=== PATIENT | female | born 1950 | race Caucasian/White ===

== ENCOUNTER 2023-08-02 08:48 | Emergency (ER) | payer MEDICARE, OTHER, SELFPAY ==
[2023-08-02 08:57] VITALS: BP 134/67; PULSE 71; TEMP 36.4; O2SAT 92; BMI 39.9
--- NOTE | 2023-08-02 09:07 | ECG_ITS ---
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
--- NOTE | 2023-08-02 09:07 | CT_ITS ---
The [address] [address] Patient Name: YASMANY CALHOUN MRN: [id number] date: 1950 Sex: F Assigned Patient Location: ER Current Patient Location: ER Accession/Order Number: [id number] Exam Date: 08/02/2023 09:50 Report Date: 08/02/2023 10:04 At the request of: JOSE GAMBLE Procedure: CT head/brain wo con EXAM: CT head/brain wo con HISTORY: Dizzy, vertigo COMPARISON: None. CT head without contrast CLINICAL: Dizzy, vertigo . TECHNIQUE: Contiguous transaxial images were obtained from skull base to vertex without administration of intravenous contrast. Dose reduction: mA and/or kV are were adjusted by automated exposure control software based upon patients height and weight. FINDINGS: There is no focal scalp soft tissue swelling or acute calvarial fracture. There is hyperostosis frontalis interna, an anatomic normal variant. The visualized globes and orbits are grossly normal. Visualized paranasal sinuses are clear. Bilateral mastoid air cells are clear. The ventricles and sulci are normal and symmetric bilaterally. There is no intraparenchymal hemorrhage, extraaxial fluid collection, mass lesion, or acute large territory ischemia by noncontrast CT. CT/CT head/brain wo con IMPRESSION: 1. No acute intracranial hemorrhage or acute large territory ischemia by noncontrast CT. If the patient has a focal neurologic deficit or there is clinical suspicion for acute cerebrovascular accident, brain MRI would be recommended for further evaluation. Electronically authenticated by: NICOLE FERNANDEZ Date: 08/02/2023 10:04
--- NOTE | 2023-08-02 09:08 | ED.DIZZY1 ---
HPI - Dizziness General Chief Complaint: Dizziness Stated Complaint: DIZZY, VOMITING Time Seen by Provider: 08/02/23 09:03 Source: patient Mode of arrival: ambulance History of Present Illness HPI Narrative: 72-year-old female presents for dizziness. It was of abrupt onset this morning about 6 or 7 AM. She had gotten up to use the bathroom at 4 AM and was fine at that time. It is much worse if she turns her head or gets up and walks. When she lays still it is better. No trauma fever or localized weakness. She is never had vertigo before. Related Data Home Medications ?Medication ?Instructions ?Recorded ?Confirmed albuterol sulfate 90 mcg/actuation 1 puff inhalation DAILY 08/02/23 08/02/23 aerosol inhaler hydrochlorothiazide 25 mg tablet 25 mg PO DAILY 08/02/23 08/02/23 levothyroxine 75 mcg tablet 75 mcg PO DAILY 08/02/23 08/02/23 losartan 100 mg tablet 100 mg PO DAILY 08/02/23 08/02/23 montelukast 10 mg tablet 10 mg PO DAILY 08/02/23 08/02/23 pantoprazole 40 mg tablet,delayed 40 mg PO DAILY 08/02/23 08/02/23 release potassium chloride 10 mEq 10 meq PO DAILY 08/02/23 08/02/23 tablet,extended release(part/cryst) (Joy Moser) Previous Rx's ?Medication ?Instructions ?Recorded meclizine 25 mg tablet 25 mg PO QID PRN dizziness #20 tabs 08/02/23 ondansetron 4 mg disintegrating 4 mg PO Q6H PRN nausea and 08/02/23 tablet vomiting #20 tabs Allergies Allergy/AdvReac Type Severity Reaction Status Date / Time sulfamethoxazole Allergy Intermediate Hives Verified 08/02/23 08:53 [From Bactrim] trimethoprim [From Bactrim] Allergy Intermediate Hives Verified 08/02/23 08:53 Review of Systems ROS Narrative A ten point review of systems is negative except as noted above. Exam Narrative Exam Narrative: Nurses note and vital signs reviewed and patient is not hypoxic. General: The patient appears well and in no apparent distress. Patient is resting comfortably on cart. Skin: Warm, dry, no pallor noted. There is no rash noted. Head: Normocephalic, atraumatic Eye: Normal conjunctiva, no drainage, EOMI. PERRL Ears, Nose, Mouth, and Throat: oral mucosa is moist. Nares patent. Cardiovascular: Regular Rate and Rhythm Respiratory: Patient is in no distress, no accessory muscle use, lungs are clear to auscultation, no wheezing, rales or rhonchi Back: non-tender GI: Soft and nontender Musculoskeletal: The patient has no evidence of calf tenderness, no pitting edema, symmetrical pulses noted bilaterally Neurological: A&O, normal speech Psychiatric: Cooperative Constitutional Vital Signs, click to edit/add: Last Vital Signs Temp 97.6 F 08/02/23 08:57 Pulse 71 08/02/23 08:57 Resp 15 08/02/23 08:57 BP 134/67 08/02/23 08:57 Pulse Ox 92 L 08/02/23 08:57 O2 Del Method Room Air 08/02/23 08:57 Course Vital Signs Vital signs: Vital Signs Temperature 97.6 F 08/02/23 08:57 Pulse Rate 71 08/02/23 08:57 Respiratory Rate 15 08/02/23 08:57 Blood Pressure 134/67 08/02/23 08:57 Pulse Oximetry 92 L 08/02/23 08:57 Oxygen Delivery Method Room Air 08/02/23 08:57 Temperature 97.6 F 08/02/23 08:57 Pulse Rate 71 08/02/23 08:57 Respiratory Rate 15 08/02/23 08:57 Blood Pressure 134/67 08/02/23 08:57 Pulse Oximetry 92 L 08/02/23 08:57 Oxygen Delivery Method Room Air 08/02/23 08:57 MDM - Dizziness MDM Narrative Medical decision making narrative: The patient's workup is negative including CT of the brain. She is feeling better after being given oral Antivert and IV Zofran. She is able to be discharged home. Treatment diagnosis and follow-up were discussed with the patient. Differential Diagnosis Differential diagnosis: Likely benign paroxysmal positional vertigo, orthostatic hypotension and other (Dehydration) Lab Data Attestation: I reviewed the patient's lab results. Labs: Lab Results 08/02/23 Range/Units 09:15 WBC 7.8 (4.0-11.0) 10^3/uL RBC 4.89 (4.20-5.40) 10^6/uL Hgb 14.1 (12.0-16.0) g/dL Hct 43.5 (36.0-48.0) % MCV 89.0 (81.0-99.0) fL MCH 28.8 (26.7-34.0) pg MCHC 32.4 (29.9-35.2) g/dL RDW 14.0 (11.0-15.0) % Plt Count 192 (150-450) 10^3/uL MPV 11.4 (9.5-13.5) fL Neut % (Auto) 69.7 (43.0-75.0) % Lymph % (Auto) 23.0 (20.5-60.0) % Bandera % (Auto) 4.7 (1.7-12.0) % Eos % (Auto) 1.5 (0.9-7.0) % Baso % (Auto) 0.5 (0.2-2.0) % Neut # (Auto) 5.4 (1.4-6.5) 10^3/uL Lymph # (Auto) 1.8 (1.2-3.8) 10^3/uL Bandera # (Auto) 0.4 (0.3-0.8) 10^3/uL Eos # (Auto) 0.1 (0.0-0.7) 10^3/uL Baso # (Auto) 0.0 (0.0-0.1) 10^3/uL Abs Immat Gran (auto) 0.05 H (0.00-0.03) 10^3/uL Imm/Tot Granulo (auto) 0.6 H (0.0-0.5) % Sodium 141 (136-145) mmol/L Potassium 3.5 (3.5-5.1) mmol/L Chloride 103 (98-107) mmol/L Carbon Dioxide 29.4 (21.0-32.0) mmol/L Anion Gap 12.1 BUN 21.0 H (7.0-18.0) mg/dL Creatinine 0.98 (0.55-1.02) mg/dL Est GFR ( Amer) >60 (>=60) Est GFR (Non-Af Amer) 56 L (>=60) BUN/Creatinine Ratio 21.4 Glucose 131 H (74-106) mg/dL Calcium 9.0 (8.5-10.1) mg/dL Imaging Data CT scan - head: Radiologist's impression: ITS Impressions Head CT 08/02/23 09:07 IMPRESSION: 1. No acute intracranial hemorrhage or acute large territory ischemia by noncontrast CT. If the patient has a focal neurologic deficit or there is clinical suspicion for acute cerebrovascular accident, brain MRI would be recommended for further evaluation. Electronically authenticated by: NICOLE FERNANDEZ Date: 08/02/2023 10:04 Discharge Plan Discharge Stand Alone Forms: Portal Instructions Chief Complaint: Dizziness Clinical Impression: Vertigo Patient Disposition: Home, Self-Care Time of Disposition Decision: 10:30 Condition: Good Mode of Transportation: Private Vehicle Prescriptions / Home Meds: New meclizine 25 mg tablet 25 mg PO QID PRN (Reason: dizziness) Qty: 20 0RF ondansetron 4 mg tablet,disintegrating 4 mg PO Q6H PRN (Reason: nausea and vomiting) Qty: 20 0RF No Action albuterol sulfate 90 mcg/actuation HFA aerosol inhaler 1 puff INHALATION DAILY hydrochlorothiazide 25 mg tablet 25 mg PO DAILY levothyroxine 75 mcg tablet 75 mcg PO DAILY losartan 100 mg tablet 100 mg PO DAILY montelukast 10 mg tablet 10 mg PO DAILY pantoprazole 40 mg tablet,delayed release (DR/EC) 40 mg PO DAILY potassium chloride [Klor-Con M10] 10 mEq tablet,ER particles/crystals 10 meq PO DAILY Print Language: Puerto Rican Instructions: Vertigo (ED) Referrals: HEDY CHENG [Primary Care Provider] - 1 week
[2023-08-02] MEDS: MECLIZINE HCL 12.5 MG TABLET 25 MG PO (09:21)
[2023-08-02 09:31] LABS: Basophils Percent Auto 0.5 % (0.2-2.0); Eosinophils Absolute Auto 0.1 10^3/uL (0.0-0.7); Eosinophils Percent Auto 1.5 % (0.9-7.0); Hematocrit 43.5 % (36.0-48.0); Hemoglobin 14.1 g/dL (12.0-16.0); Immature Granulocytes Abs Auto 0.05 10^3/uL (0.00-0.03); Immature Granulocytes Pct Auto 0.6 % (0.0-0.5); Lymphocytes Absolute Auto 1.8 10^3/uL (1.2-3.8); Mean Corpuscular HGB Conc 32.4 g/dL (29.9-35.2); Mean Corpuscular Hemoglobin 28.8 pg (26.7-34.0); Mean Platelet Volume 11.4 fL (9.5-13.5); Monocytes Absolute Auto 0.4 10^3/uL (0.3-0.8); Monocytes Percent Auto 4.7 % (1.7-12.0); Neutrophils Absolute Auto 5.4 10^3/uL (1.4-6.5); Neutrophils Percent Auto 69.7 % (43.0-75.0); Platelet Count 192 10^3/uL (150-450); Red Blood Count 4.89 10^6/uL (4.20-5.40); White Blood Count 7.8 10^3/uL (4.0-11.0)
[2023-08-02 09:45] LABS: Anion Gap 12.1; BUN Creatinine Ratio 21.4; Carbon Dioxide 29.4 mmol/L (21.0-32.0); Chloride 103 mmol/L (98-107); Estimated GFR (African America >60 (>=60); Estimated GFR (Non-African Ame 56 (>=60); Glucose 131 mg/dL (74-106); Potassium 3.5 mmol/L (3.5-5.1); Sodium 141 mmol/L (136-145)
== END 2023-08-02 11:17 | disposition home or self-care (01) ==
PROVIDERS: Emergency Provider Emergency Medicine; PCP Family Medicine
DX: R42 Dizziness and giddiness (principal)
CPT/HCPCS: 36415; 70450; 80048; 85025; 93005; 99285

== ENCOUNTER 2025-02-24 22:12 | Emergency (ER) | payer MEDICARE, SELFPAY ==
--- OUTSIDE RECORDS SUMMARY | 2025-02-17 11:00 | XMS_ITS | Encounter Summary ---
Author Organization [facility] Healthcare Address [address] [place] [address] Care Team Providers Care Binitrotoluene Operator Name Role Phone Moe Momin MD Primary Care Provider [phone] Reason for Referral * Clinic-Administered Medication (Routine) - ClosedSpecialtyDiagnoses / ProceduresReferred By ContactReferred To ContactOrthopaedic Surgery Diagnoses Arthritis of right knee Procedures L Inj/Asp: R knee Gorge Scruggs PA [address] [place] [address] Phone: tel: fax: Referral IDStatusReasonStart DateExpiration DateVisits RequestedVisits [id number] Reason for Visit * ReasonCommentsPain Encounter Details DateTypeDepartmentCare Team (Latest Contact Info)Xpvpkzbjkzk86/10/2025 11:00 AM ESTOffice Visit [facility] [address] [place] [address] Gorge Scruggs PA [address] [place] [address] Right knee pain, unspecified chronicity (Primary Dx); Arthritis of right knee; Acute pain of right knee Social History Tobacco UseTypesPacks/DayYears UsedDateSmoking Tobacco: NeverSmokeless Tobacco: NeverAlcohol UseStandard Drinks/WeekCommentsYes1 (1 standard drink = 0.6 oz pure alcohol)1 glass once a month or every other monthCommentsUnknownSex and Gender InformationValueDate RecordedSex Assigned at BirthNot on fileLegal Sex Vafmim3305/23/2022 7:21 PM EDTGender IdentityNot on fileSexual OrientationNot on filedocumented as of this encounter Progress Notes * AL Boland - 02/17/2025 11:00 AM ESTAssociated Order(s): L Inj/Asp: R knee Post-Procedure Diagnose(s): Arthritis of right knee Images from the original note were not included. Orthopedic Office note: NAME: Sonia Toledo : 1950 EST PT WITH FLARE UP RT KNEE PAIN FOR YRS- SYMPTOMS GRADUALLY INCREASING -S/P CORITSONE INJ 12/11/23- WANTING A REPEAT INJ TODAY XRAY RT KNEE TODAY EPIC 02/17/25 CORTISONE INJ 07/17/23, 12/11/23 PAIN MEDIAL KNEE- DENIES SWELLING- USES ICE- +ADVIL/TYLENOL - DENIES INSTABILITY- SOME STIFFNESS INTHE AM Knee Musculoskeletal Exam Gait Antalgic: right Inspection Leg length disparity: no discrepancy Right Erythema: none Effusion: mild Edema: none Ecchymosis: none Deformity: none Alignment: varus Palpation Right Right knee palpation is unremarkable. Increased warmth: none Masses: none Crepitus: patellofemoral and medial Tenderness: present Medial joint line: moderate Patella: mild Range of Motion Right Right knee range of motion is normal and full. Active extension: 10 Passive extension: 5 Active flexion: 115 Passive flexion: 120 Strength Right Right knee strength is normal. Extension: 5/5. Extension is affected by pain. Flexion: 5/5. Flexion is affected by pain. Instability Right Instability signs: none - stable Anterior drawer: normal Neurovascular Right Right knee neurovascular exam is normal. Pulses - PT: normal Posterior tibial: 2+ Capillary refill: warm and well-perfused Special Signs Right Right knee special signs are normal. Straight leg raise: normal J sign: mild Patellar apprehension: none General Constitutional: appears stated age Labored breathing: no Psychiatric: normal mood and affect Neurological: alert Skin: intact Lymphadenopathy: none Orders Placed This Encounter Procedures L Inj/Asp: R knee This order was created via procedure documentation XR knee 1 or 2 views right Reason for exam:: PAIN L Inj/Asp: R knee on 02/17/2025 11:27 AM Indications: pain Details: 22 G needle, anterolateral approach Medications: 40 mg methylPREDNISolone acetate 40 MG/ML Outcome: tolerated well, no immediate complications E UTILIZING ASEPTIC TECHNIQUE PT GIVEN INJECTION IN RIGHT KNEE, NEUROVASC INTACT S/P INJ, TOLERATEDWELL Procedure, treatment alternatives, risks and benefits explained, specific risks discussed. Consent was given by the patient. Patient was prepped and draped in the usual sterile fashion. Results - Imaging (X-rays of the right knee): - Varus deformity with bone on bone articulation medial joint line ICD-10-CM 1. Right knee pain, unspecified chronicity M25.561 2. Arthritis of right knee M17.11 L Inj/Asp: R knee 3. Acute pain of right knee M25.561 XR knee 1 or 2 views right Assessment & Plan Right knee arthritis X-rays performed today show varus deformity with [id number] articulation at the medial joint line. Her weightbearing x-ray looks stable compared to the one from 11/2024. She notes that her left knee is doing well. With a dose of Motrin and an injection, she is able to continue all her activities of daily living. She declines the thought of knee replacement at this time and prefers to call if symptoms persist or worsen for reevaluation, potential surgical intervention, or repeat injection depending on the duration and extent of symptom relief. Diagnostic plan: X-rays performed today. Treatment plan: Cortisone injection requested in the right knee. Risks and benefits discussed, including potential side effects such as infection, increased pain, and possible allergic reactions. Shehad no further concerns or questions and declined to make a formal follow-up today. Clinical decision making: Risks and benefits discussed, including potential side effects such as infection, increased pain, and possible allergic reactions. Follow-up: She declined to make a formal follow-up today. Questions answered in laymen terms at the bedside. The diagnosis, home exercise plan and any ongoing restrictions/ recommendations reviewed. If unable to be reached in office, I recommend evaluation at nearest Emergency Room if any symptoms worsened or new symptoms develop for requiring urgent evaluation. Visit was preformed using [employer]-mapping pilot speech recognition. documented in this encounter Plan of Treatment Not on file documented as of this encounter Procedures Procedure NamePriorityDate/TimeAssociated DiagnosisCommentsPR ARTHROCENTESIS ASPIR&/INJ MAJOR JT/BURSA W/O GGQuolchf40/10/2025 11:27 AM EST Arthritis of right knee XR KNEE 1-2 VIEWS YIGUPNbebgzj20/10/2025 11:04 AM EST Acute pain of right knee documented in this encounter Results * IN ARTHROCENTESIS ASPIR&/INJ MAJOR JT/BURSA W/O US (02/17/2025 11:27 AM EST) Narrative Gorge Scruggs PA - 02/17/2025 11:27 AM EST AL Boland 02/17/2025 12:00 PM L Inj/Asp: R knee on 02/17/2025 11:27 AM Indications: pain Details: 22 G needle, anterolateral approach Medications: 40 mg methylPREDNISolone acetate 40 MG/ML Outcome: tolerated well, no immediate complications E UTILIZING ASEPTIC TECHNIQUE PT GIVEN INJECTION IN RIGHT KNEE, NEUROVASC INTACT S/P INJ, TOLERATED WELL Procedure, treatment alternatives, risks and benefits explained, specific risks discussed. Consent was given by the patient. Patient was prepped and draped in the usual sterile fashion. Authorizing ProviderResult TypeResult Gloria Scruggs PAIN CLINIC/BEDSIDE ORDERABLESFinal Result * XR knee 1 or 2 views right (02/17/2025 11:04 AM EST)Anatomical Region LateralityModalityLower Extremities, KneeRightRadiographic ImagingSpecimen (Source)Anatomical Location / LateralityCollection Method / VolumeCollection TimeReceived Time Narrative 02/17/2025 11:58 AM EST Imaging Result: AP and Lateral weightbearing right knee: No acute fracture or dislocation Bone on bone articulation medial joint line with subchondral sclerosis and flattening Trace effusion with mild varus alignment Moderate patella femoral degenerative changes Impression: tricompartmental arthritis right knee greatest medial and patellafemoral joint spaces. Authorizing ProviderResult TypeResult StatusGorge Scruggs PAIMG XR PROCEDURES Final Result documented in this encounter Visit Diagnoses Diagnosis Right knee pain, unspecified chronicity- Primary Arthritis of right knee Acute pain of right knee documented in this encounter Administered Medications Medication OrderMAR ActionAction DateDoseRateSite methylPREDNISolone acetate (DEPO-Medrol) injection 40 mg 40 mg, Intra-articular, Once PRN Procedure, Starting on Sat02/17/25 at 1127, For 1 dose Indications:Arthritis of right vsghYbbzd34/10/2025 11:27 AM EST40 mgdocumented in this encounter Care Teams Team MemberRelationshipSpecialtyStart DateEnd Date Moe Momin MD [address] [place] [address] PCP - GeneralFamily Medicine12/02/24documented as of this encounter
--- OUTSIDE RECORDS SUMMARY | 2025-02-17 11:05 | XMS_ITS | Encounter Summary ---
Author Organization [facility] Address [address] [place] [address] Care Team Providers Care Relief Map Modeler Name Role Phone Moe Momin MD Primary Care Provider [phone] Encounter Details DateTypeDepartmentCare Team (Latest Contact Info)Xheuryknwoq67/10/2025 11:05 AM ESTAncillary Procedure [facility] [address] [place] [address] Social History Tobacco UseTypesPacks/DayYears UsedDateSmoking Tobacco: NeverSmokeless Tobacco: NeverAlcohol UseStandard Drinks/WeekCommentsYes1 (1 standard drink = 0.6 oz pure alcohol)1 glass once a month or every other monthCommentsUnknownSex and Gender InformationValueDate RecordedSex Assigned at BirthNot on fileLegal Sex Mqnjow5605/23/2022 7:21 PM EDTGender IdentityNot on fileSexual OrientationNot on filedocumented as of this encounter Plan of Treatment Not on file documented as of this encounter Procedures Procedure NamePriorityDate/TimeAssociated DiagnosisCommentsXR KNEE 1-2 VIEWS AFCFWNsfoifn22/10/2025 11:04 AM EST Acute pain of right knee documented in this encounter Results * XR knee 1 or 2 views [...] and patellafemoral joint spaces. Authorizing ProviderResult TypeResult StatusMatthew Dhruv Scruggs PAIMG XR PROCEDURES Final Result documented in this encounter Visit Diagnoses Not on filedocumented in this encounter Care Teams Team MemberRelationshipSpecialtyStart DateEnd Date Moe Momin MD [address] [place] [address] PCP - GeneralFamily Medicine12/02/24documented as of this encounter
[2025-02-24 22:21] VITALS: BP 140/87; PULSE 93; TEMP 36.6; O2SAT 95; BMI 41.2
--- OUTSIDE RECORDS SUMMARY | 2025-02-24 22:49 | XMS_ITS | Encounter Summary ---
Author Organization [facility] Address [address] [place] [address] Care Team Providers Care Advertising Coordinator Name Role Phone Moe Momin MD Primary Care Provider [phone] Encounter Details DateTypeDepartmentCare Team (Latest Contact Info)Otxnprqinqs05/10/2025Travel Social History Tobacco UseTypesPacks/DayYears UsedDateSmoking Tobacco: NeverSmokeless Tobacco: NeverAlcohol UseStandard Drinks/WeekCommentsYes1 (1 standard drink = 0.6 oz pure alcohol)1 glass once a month or every other monthCommentsUnknownSex and Gender InformationValueDate RecordedSex Assigned at BirthNot on fileLegal Sex Higxho2405/23/2022 7:21 PM EDTGender IdentityNot on fileSexual OrientationNot on filedocumented as of this encounter Plan of Treatment Not on file documented as of this encounter Visit Diagnoses Not on filedocumented in this encounter Care Teams Team MemberRelationshipSpecialtyStart DateEnd Date Moe Momin MD [address] [place] [address] PCP - GeneralFamily Medicine12/02/24documented as of this encounter
--- OUTSIDE RECORDS SUMMARY | 2025-02-24 22:49 | XMS_ITS | Clinical Summary ---
Author Organization [employer] [facility] tem Address [id number] [address] [place] [address] Care Team Providers Care Television And Radio Repairer Name Role Phone Moe Momin MD Primary Care Provider [phone] Allergies Active AllergyReactionsCriticalityNoted DateCommentsAmoxicillin-Pot Clavulanate Hives,GI Welficilyfn27/26/2018Sulfamethoxazole-CpohkxryzpueLevzkLwvxpp25/26/2018 DoxycyclineGI Eowofmuecmz07/04/0671EpcwtrlammtkwxgfUxtcGdg56/20/2024Trimethoprim ApddFtb5409/28/2023 Medications MedicationSigDispense QuantityRefillsLast FilledStart DateEnd DateStatus loratadine (CLARITIN) 10 mg tablet Take 1 tablet (10 mg total) by mouth in the morning.Active TURMERIC ORAL Take by mouth.Active albuterol (PROVENTIL HFA;VENTOLIN HFA) 90 mcg/actuation inhaler Indications:Mild intermittent asthma without complicationInhale 2 puffs every 6 (six) hours as needed for wheezing. 18 g 5Active fluticasone propionate (FLONASE) 50 mcg/actuation nasal spray SPRAY 2 SPRAYS INTO EACH NOSTRIL IN THE MORNING 48 mL 5Active albuterol (PROVENTIL,VENTOLIN) 2.5 mg /3 mL (0.083 %) nebulizer solution Indications:Mild intermittent asthma without complicationInhale 3 mL (2.5 mg total) by nebulization every 6 (six) hours as needed for wheezing. 75 mL 1205Active carbamide peroxide (DEBROX) 6.5 % otic solution Indications:Impacted cerumen of right earAdminister 5 drops into both ears in the morning and 5 drops before bedtime. 15 mL 5Active hydroCHLOROthiazide (HYDRODIURIL) 25 mg tablet TAKE 1 TABLET (25 MG TOTAL) BY MOUTH DAILY. 90 tablet 5Active levothyroxine (SYNTHROID, LEVOTHROID) 75 MCG tablet TAKE 1 TABLET BY MOUTH EVERY DAY IN THE MORNING 90 tablet 5Active meclizine (ANTIVERT) 25 mg tablet Take 1 tablet (25 mg total) by mouth 3 (three) times a day as needed for nausea. 30 tablet 5Active pantoprazole (PROTONIX) 40 mg EC tablet Take 1 tablet (40 mg total) by mouth every morning before breakfast. 90 tablet 5Active fluticasone furoate (ARNUITY ELLIPTA) 200 mcg/actuation blister with device Inhale 1 puff in the morning. 90 each 5Active KLOR-CON M10 10 mEq CR tablet Indications:HypokalemiaTAKE 1 TABLET BY MOUTH IN THE MORNING AND 1 TABLET BEFORE BEDTIME. 180 tablet 5Active montelukast (SINGULAIR) 10 mg tablet TAKE 1 TABLET BY MOUTH EVERY DAY AT NIGHT 90 tablet 5Active losartan (COZAAR) 100 mg tablet TAKE 1 TABLET (100 MG TOTAL) BY MOUTH IN THE MORNING 90 tablet 5Active losartan (COZAAR) 100 mg tablet TAKE 1 TABLET (100 MG TOTAL) BY MOUTH IN THE MORNING 90 tablet 5104/22/2024Discontinued Active Problems ProblemNoted DateDiagnosed DateSevere obesity (BMI 35.0-39.9) with comorbidity 07/18/2021cquired /18/2022Mild intermittent asthma without yigxcppqblwz24/18/2022History of recurrent UTIs11/25/2018 Overview (11/25/2018): 9/17/19: Recurrent cystitis. Unclear if she is getting recurrent bacterial versus nonbacterial cystitis. Her symptoms she was having in September is likely secondary to the prednisone. For now plan to have her obtain urine cultures when symptomatic. I have scheduled her for follow-up in 6 months to review this data and determine next steps Gbetcs7706/20/20174672Vneqsxixetxj86/12/2018GERD (gastroesophageal reflux disease) 06/20/2017 Resolved Problems ProblemNoted DateDiagnosed DateResolved DateBMI 40.0-44.9, adult12/17/2019 06/26/2021evere obesity (BMI 35.0-39.9) with Encounters DateTypeDepartmentCare UsrlQtoezpfxlpl30/12/2025Refill [facility] [address] [place] [address] Moe Momin MD 02/01/2025 8:51 AM EST - 02/01/2025 11:59 PM ESTHospital Encounter [facility] - Mammography[facility]A Imaging [address] [place] [address] Encounter for screening mammogram for malignant neoplasm of breast Discharge Disposition: Home02/01/20253452Abhhzj77/26/2025Refill [facility] [place] [address] Moe Momin MD 01/01/2025Refill [facility] [place] [address] Moe Momin MD Eyekdbllwyk96/22/2025Results Follow-Up [facility] [place] [address] Moe Momin MD CBC auto differential, Comprehensive metabolic panel, Lipid profile, Additional followed-up results: 11:00 AM EDTOffice Visit [facility] [place] [address] Moe Momin MD Encounter for Medicare annual wellness exam (Primary Dx); Encounter for screening mammogram for malignant neoplasm of breast; Primary hypertension; Acquired sesrpjfnzjanea84/21/5073Nozyre50/20/2025Refill [facility] [address] [place] [address] Moe Momin MD from Last 3 Months Immunizations ImmunizationAdministration DatesNext DueCOVID-19, mRNA, LNP-S, PF, 100mcg/0.5mL Dose06/03/2020,05/06/2020ovid-19, Mrna, Lnp-s, Bivalent, Pf, 50mcg/0.5ml or 25mcg/0.25ml01/01/2022Influenza (IM) Preservative Free12/10/2016Influenza High Dose Preservative Free IM12/13/2023,12/23/2018Influenza Vaccine, Quadrivalent, Dxbyleesax95/27/2021,11/19/2019Influenza, High-dose, Ulysamjkibse55/25/2023, 12/10/2021Influenza, Injectable, quadrivalent (PF)11/19/2019,11/04/2018, 12/11/2017Influenza, Trivalent, Pbwhvdfpwm14/10/2020Influenza, Unspecified 12/05/2020neumococcal Conjugate 13-Oxxvau0412/28/2016Pneumococcal Polysaccharide 12/09/2016RSV, bivalent, protein subunit RSVpreF, diluent reconstituted, 0.5 mL, PF02/13/2023Zoster Vaccine Zciaojsjsis87/02/2021,10/20/2020 Family History Medical HistoryRelationNameCommentsHypertensionBrotherJerry HergesheimerHeart diseaseMotherMyrtle HergesheimerHypertensionMotherMyrtle Hergesheimer HypertensionSister 1Deborah HawkHypothyroidismSister 1Deborah HawkLearning disabilitiesSister 1Deborah HawkAsthmaSister 2Kim ProtzmanBreast cancerNeg Hx RelationNameStatusCommentsBrotherJerry HergesheimerFatherDeceasedMotherMyrtle HergesheimerDeceasedSister 1Deborah HawRejiister 2Kim ProtzmanAlive Social History Tobacco UseTypesPacks/DayYears UsedDateSmoking Tobacco: NeverSmokeless Tobacco: Never Tobacco Cessation:Counseling Given: Not Answered Alcohol UseStandard Drinks/WeekCommentsYes0 (1 standard drink = 0.6 oz pure alcohol)very littlePHQ-2AnswerDate RecordedTotal Ophuw343/21/2025AUDIT-CAnswer Date RecordedQ1: How often do you have a drink containing alcohol?Monthly or less12/29/2024Q2: How many drinks containing alcohol do you have on a typical day when you are drinking?1 or Q3: How often do you have six or more drinks on one occasion?Never12/29/2024hildcareAnswerDate RecordedChildcare Deazgol6608/20/2018EmploymentAnswerDate DnozycepQulrjoapriVypiwzb70/12/2019Hunger ScreeningAnswerDate RecordedWithin the past 12 months we worried whether our food would run out before we got money to buy more.Never True12/29/2024Within the past 12 months the food we bought just didn't last and we didn't have money to get more.Never True12/29/2024Purpose - LifeAnswerDate RecordedPurpose and direction in rigfAblvpsx01/27/2021CommentsNoSex and Gender Information ValueDate RecordedSex Assigned at MsiujCluikf91/30/2021 5:49 PM ESTLegal Sex Exekcv1810/14/2014 11:46 AM EDTGender OhxtguyaJfuxlw11/30/2021 5:49 PM ESTSexual OrientationChoose not to qwagzplg71/30/2021 5:49 PM EST Last Filed Vital Signs Vital SignReadingTime TakenCommentsBlood Uchgxlap792/7812/29/2024 11:01 AM EDT Nooym510412/29/2024 11:01 AM ZFJSrgyouaglhd01.1 ??C (98.8 ??F)08/20/2024 12:55 PM EDTRespiratory Gjww8284 11:01 AM EDTOxygen Fskhifgotd91%12/29/2024 11:01 AM EDTInhaled Oxygen Concentration--Eckhxu609.7 kg (222 lb)12/29/2024 11:01 AM BLFOmfkaa858.5 cm (5' 1.61 )12/29/2024 11:01 AM EDTBody Mass Index41.11 12/29/2024 11:01 AM EDT Plan of Treatment DateTypeDepartmentCare Team (Latest Contact Info)Vkoyoibmzwp96/21/2026 10:00 AM EDTOffice Visit [facility] [address] [place] [phone] Moe Momin MD [address] [place] [phone] 12/30/2025 9:30 AM EDTOffice Visit [facility] [address] [place] [phone] Moe Momin MD [address] [place] [address] [phone] Health MaintenanceDue DateLast DoneCommentsDTaP,Tdap and Td Vaccines (1 - Tdap) 1969COVID-19 Vaccine (2024- season), 02/14/2024, 02/01/2023, Additional history existsAdult BMI Follow Up Plan12/29/2025 12/29/2024dult BMI Iusjjvmyz39Depression Diyyknlte90/21/2026 12/29/2024Fall Risk Oyscomsvx13Medicare Annual Wellness Visit , 12/26/2023, 12/24/2022, Additional history existsTobacco Lzcprjqmm65olonoscopy/, 10/28/2023, 11/15/2020, Additional history existsZoster (Shingles) VaccineCompleted 01/10/2021, 1RSV ( or age 60+ yrs)Uwxcdqfcs92/06/2023Influenza QplkmhhJjslnsafj45/28/2025, 12/24/2023, 12/13/2023, Additional history exists Medical Devices Not on file Procedures Procedure NamePriorityDate/TimeAssociated DiagnosisCommentsMAMM SCREENING BILATERAL W RXSZgvwpav17/24/2025 9:07 AM EST Encounter for screening mammogram for malignant neoplasm of breast VLUPtqvnvd40/22/2025 7:59 AM EDT Acquired hypothyroidism LIPID VHSVKFQZoihbwz01/22/2025 7:59 AM EDT Primary hypertension COMPREHENSIVE METABOLIC PWBKJOfakbzm66/22/2025 7:59 AM EDT Primary hypertension CBC WITH AUTO KKXNQRDBOZKPIdrweua41/22/2025 7:59 AM EDT Primary hypertension PROVATION HXYHEHZHECCOhzfifs18/19/2024 7:56 AM EDT from Last 3 Months or Most Recently Relevant to Health Maintenance Results * Mammography screening bilateral with CAD (02/01/2025 9:07 AM EST)Anatomical RegionLateralityModalityBreastBilateralMammographySpecimen (Source)Anatomical Location / LateralityCollection Method / VolumeCollection TimeReceived Time 02/02/2025 12:22 PM EST Narrative 02/02/2025 12:28 PM EST YASMANY Nicole UNIQUE 1950 [id number] EXAM: MAMM SCREENING BILATERAL W CAD, 02/01/2025 8:52 AM CLINICAL INDICATIONS: Screening, Encounter for screening mammogram for malignant neoplasm of breast COMPARISON: Multiple prior mammograms were viewed for comparison dating back to 2019 TECHNIQUE: Bilateral digital tomosynthesis MLO and CC views of the breasts were obtained, with creation of synthetic 2D views. Computer aided detection was utilized. FINDINGS: The breasts are almost entirely fatty. There are no suspicious masses, calcifications, or areas of architectural distortion. IMPRESSION: No mammographic evidence of malignancy. BI-RADS: BI-RADS 1 - Negative RECOMMENDATION: ??Routine screening mammogram in 1 year. RISK ASSESSMENT: TC Lifetime risk: 1.9%. The patient's reported personal and family medical history was used calculate their Tyrer-Cuzick lifetime risk of malignancy. Scores less than 20% are not considered high risk per ACR guidelines and patient should continue with the above recommendation. Finalized by Shlomo Lane DO on 02/02/2025 12:28 PM 1 a MAMM 1 YR [facility] Accredited Performing Facility: [facility] - Mammography/DEXA Imaging [address] [facility] [id number] [address] DO - 02/02/2025 YASMANY Nicole UNIQUE 1950 [id number] EXAM: MAMM SCREENING BILATERAL W CAD, 02/01/2025 8:52 AM CLINICAL INDICATIONS: Screening, Encounter for screening mammogram formalignant neoplasm of breast COMPARISON: Multiple prior mammograms were viewed for comparison datingback to 2019 TECHNIQUE: Bilateral digital tomosynthesis MLO and CC views of the breastswere obtained, with creation of synthetic 2D views. Computer aideddetection was utilized. FINDINGS: The breasts are almost entirely fatty. There are no suspicious masses, calcifications, or areas of architectural distortion. IMPRESSION: No mammographic evidence of malignancy. BI-RADS: BI-RADS 1 - Negative RECOMMENDATION: Routine screening mammogram in 1 year. RISK ASSESSMENT: TC Lifetime risk: 1.9%. The patient's reported personal and family medical history was usedcalculate their Tyrer-Cuzick lifetime risk of malignancy. Scores less than20% are not considered high risk per ACR guidelines and patient shouldcontinue with the above recommendation. Finalized by Shlomo Lane DO on 02/02/2025 12:28 PM 1 a MAMM 1 YR [facility] Accredited Performing Facility: [facility] - Mammography/DEXA Imaging [address] [facility] [place] [address] Authorizing ProviderResult TypeResult StatusMoe Momin MDMEM[facility] MAMMO[facility]APHY ORDERABLESFinal Result * CBC auto differential (12/30/2024 7:59 AM EDT)ComponentValueRef RangeTest MethodAnalysis TimePerformed AtPathologist SignatureWBC8.44 - 11 x10E9/L 12/30/2024 2:16 PM [facility] LABORATORYRBC Count5.083.8 - 5.2 X10E12/L1 2:16 PM [facility] Tghnjpubkn53.711.7 - 15.5 g/dL12/30/2024 2:16 PM [facility] YOWRVJQYTBNhvtskydof16.235 - 47 %12/30/2024 2:16 PM [facility] SCTQZZJMADHOX8570 - 100 fL12/30/2024 2:16 PM [facility] OIGYWXPTDFXRA86.027 - 34 pg12/30/2024 2:16 PM [facility] WTLNCGIWFRULGC03.332 - 36 g/dL12/30/2024 2:16 PM [facility] IILDZCIXTPIEY45.811.5 - 15 %12/30/2024 2:16 PM [facility] LABORATORYPlatelet Ucppu004024 - 450 X10E9/L1 2:16 PM [facility] LABORATORYMPV9.97 - 12 fL12/30/2024 2:16 PM [facility]OR[facility]ORYNeutrophils %61.9%12/30/2024 2:16 PM [facility]OR[facility]ORYLymphocytes %28.1%12/30/2024 2:16 PM [facility]ORYMonocytes %6.5%12/30/2024 2:16 PM [facility]ORYEosinophils %2.7%12/30/2024 2:16 PM [facility]OR[facility]ORYBasophils %0.8%12/30/2024 2:16 PM [facility] LABORATORYNeutrophils Absolute (A)5.21.5 - 6.6 10*3/uL 12/30/2024 2:16 PM [facility] LABORATORYLymphocytes Absolute 2.31.0 - 3.5 10*3/uL12/30/2024 2:16 PM [facility] Monocytes Absolute0.50.0 - 0.9 10*3/uL12/30/2024 2:16 PM [facility]ORYEosinophils Absolute0.20.0 - 0.4 10*3/uL12/30/2024 2:16 PM [facility] LABORATORYBasophils Absolute0.10.0 - 0.2 10*3/uL 12/30/2024 2:16 PM [facility] LABORATORYDifferential Type AUTOMATED ZZFYIYNJVGVA41/22/2025 2:16 PM [facility] LABORATORYSpecimen (Source)Anatomical Location / LateralityCollection Method / VolumeCollection TimeReceived TimeBloodVenous blood / UnknownVenipuncture / Bkevvkc6612/30/2024 7:59 AM EDT1 7:59 AM EDT Narrative Authorizing ProviderResult TypeResult Nicolasa HONG BLOOD ORDERABLESFinal ResultPerforming OrganizationAddressCity/State/ZIP CodePhone Number [facility] [address] [place] [address], * TSH (12/30/2024 7:59 AM EDT)ComponentValueRef RangeTest MethodAnalysis Time Performed AtPathologist SignatureTSH4.210.49 - 4.67 uIU/mL12/30/2024 2:28 PM [facility] LABORATORYSpecimen (Source)Anatomical Location / LateralityCollection Method / VolumeCollection TimeReceived TimeBloodVenous blood / UnknownVenipuncture / Icbnjgs9112/30/2024 7:59 AM EDT1 7:59 AM EDT Narrative Authorizing ProviderResult TypeResult Nicolasa HONG BLOOD ORDERABLESFinal ResultPerforming OrganizationAddressCity/State/ZIP CodePhone Number [facility] [address] [place] [address], * Lipid profile (12/30/2024 7:59 AM EDT)ComponentValueRef RangeTest Method Analysis TimePerformed AtPathologist NuqfzmkedTSKLMTDZUEK634238 - 200 mg/dL 12/30/2024 2:20 PM [facility] KVTTELUNJXGMNSLASMBMHU2161 - 150 mg/dL12/30/2024 2:20 PM [facility] LABORATORYHDL XKRDUECIUNM75>39 mg/dL12/30/2024 2:20 PM [facility]ORATORYComment: HDL <40 mg/dL - High Risk HDL > or = 40mg/dL- Desirable HDL >60 mg/dL - Negative Risk LDL (CALC)103<130 mg/dL12/30/2024 2:20 PM [facility] Comment: LDL <100 mg/dL - Desirable LDL >160 mg/dL - High Risk CHOLESTEROL:HDL3.11.0 - 5. 2:20 PM [facility] LABORATORYVERY LOW LRBYFLAPRKY966 - 30 mg/dL12/30/2024 2:20 PM [facility] LABORATORYSpecimen (Source)Anatomical Location / Laterality Collection Method / VolumeCollection TimeReceived TimeBloodVenous blood / UnknownVenipuncture / Fqdnsfp8312/30/2024 7:59 AM EDT1 7:59 AM EDT Narrative Authorizing ProviderResult TypeResult StatusMoe HONG BLOOD ORDERABLESFinal ResultPerforming OrganizationAddressCity/State/ZIP CodePhone Number [facility] [address] [place] [address], * (ABNORMAL) Comprehensive metabolic panel (12/30/2024 7:59 AM EDT)Component ValueRef RangeTest MethodAnalysis TimePerformed AtPathologist SignatureSODIUM 945297 - 146 mmol/L1 2:20 PM [facility] POTASSIUM3.4(L)3.5 - 5.0 mmol/L1 2:20 PM [facility] JXFUGLZFDPGOLOGUZN49169 - 109 mmol/L1 2:20 PM [facility] LABORATORYCARBON FIZIAIH4343 - 32 mmol/L1 2:20 PM [facility] LABORATORYANION GAP95 - 15 mmol/L1 2:20 PM EDT [facility] LABORATORYBLOOD UREA PONTIDRH006 - 27 mg/dL12/30/2024 2:20 PM [facility] LABORATORYCREATININE1.06(H)0.40 - 1.00 mg/dL12/30/2024 2:20 PM [facility] LABORATORYComment:METHOD TRACEABLE TO IDFL DZORGJRTZBVCVNA779(H)65 - 99 mg/dL12/30/2024 2:20 PM T [facility] LABORATORYCALCIUM9.08.5 - 10.5 mg/dL12/30/2024 2:20 PM [facility] LABOR[facility]ORYTOTAL PROTEIN6.96.0 - 8.0 g/dL 12/30/2024 2:20 PM [facility] LABORATORYALBUMIN3.93.2 - 5.3 g/dL12/30/2024 2:20 PM [facility] LABORATORYALKALINE OLHZYBXGGBV1126 - 130 U/L1 2:20 PM [facility] MFBGARZMPMBMK90<=41 U/L1 2:20 PM [facility] KONBYMEDPCEWP17<=31 U/L1 2:20 PM [facility] LABORATORYBILIRUBIN,TOTAL0.70.3 - 1.2 mg/dL12/30/2024 2:20 PM [facility] LABOR[facility]ORYEGFR Non-Race Egadrioai24(L)>=60 ml/min/1.73sq.m 12/30/2024 2:20 PM [facility] LABORATORYComment: Reported eGFR is based on the CKD-EPI 2020 equation that does not use a race coefficient. Specimen (Source)Anatomical Location / LateralityCollection Method / Volume Collection TimeReceived TimeBloodVenous blood / UnknownVenipuncture / Unknown 12/30/2024 7:59 AM EDT1 7:59 AM EDT Narrative Authorizing ProviderResult TypeResult StatusMoe HONG BLOOD ORDERABLESFinal ResultPerforming OrganizationAddressCity/State/ZIP CodePhone Number [facility] [address] [place] [address], * Colonoscopy Report (10/28/2023 7:56 AM EDT)Specimen (Source)Anatomical Location / LateralityCollection Method / VolumeCollection TimeReceived Time Narrative SYSTEMGENERATED, DOCUMENTATION - 10/28/2023 7:56 AM EDT This order has been auto-finalized for image and report archival in PACs. *For full report details, please reach out to your physician. ??This image is visible to you in MyChart.* Authorizing ProviderResult TypeResult StatusMichael E Grillis DOIMG OR IMG ORDERABLESFinal Result from Last 3 Months or Most Recently Relevant to Health Maintenance Insurance Care Teams Team MemberRelationshipSpecialtyStart DateEnd Date Moe Momin MD [address] [place] [address] PCP - GeneralInternal Medicine06/16/24
--- OUTSIDE RECORDS SUMMARY | 2025-02-24 22:49 | XMS_ITS | Encounter Summary ---
Author Organization [facility] Address [address] [facility] [place] [address] Care Team Providers Care Resistor Inspector Name Role Phone Moe Momin MD Primary Care Provider [phone] Encounter Details DateTypeDepartmentCare Team (Latest Contact Info)Ypahofjamiv74/10/2025amboo flowsheet [facility] Orth[facility] [address] [place] [address] Gorge Scruggs PA [address] [place] [address] Social History Tobacco UseTypesPacks/DayYears UsedDateSmoking Tobacco: NeverSmokeless Tobacco: NeverAlcohol UseStandard Drinks/WeekCommentsYes1 (1 standard drink = 0.6 oz pure alcohol)1 glass once a month or every other monthCommentsUnknownSex and Gender InformationValueDate RecordedSex Assigned at BirthNot on fileLegal Sex Zbjqqk0905/23/2022 7:21 PM EDTGender IdentityNot on fileSexual OrientationNot on filedocumented as of this encounter Plan of Treatment Not on file documented as of this encounter Visit Diagnoses Not on filedocumented in this encounter Care Teams Team MemberRelationshipSpecialtyStart DateEnd Date Moe Momin MD [address] [place] [address] PCP - GeneralFamily Medicine12/02/24documented as of this encounter
--- OUTSIDE RECORDS SUMMARY | 2025-02-24 22:49 | XMS_ITS | Encounter Summary ---
Author Organization [employer] Address [id number] [address] [place] [address] Care Team Providers Care File Drawer Finisher Name Role Phone Moe Momin MD Primary Care Provider [phone] Reason for Visit * ReasonCommentsMed Refill Encounter Details DateTypeDepartmentCare Team (Latest Contact Info)Oacpoebpkkt55/12/2025Refill [facility] [address] [place] [phone] Moe Momin MD [address] [place], [place] [phone] Social History Tobacco UseTypesPacks/DayYears UsedDateSmoking Tobacco: NeverSmokeless Tobacco: NeverAlcohol UseStandard Drinks/WeekCommentsYes0 (1 standard drink = 0.6 oz pure alcohol)very littlePHQ-2AnswerDate RecordedTotal Vbneo071/21/2025AUDIT-CAnswer Date RecordedQ1: How often do you have a drink containing alcohol?Monthly or less12/29/2024Q2: How many drinks containing alcohol do you have on a typical day when you are drinking?1 or Q3: How often do you have six or more drinks on one occasion?Never12/29/2024hildcareAnswerDate RecordedChildcare Nvkmozm7708/20/2018EmploymentAnswerDate VfjeejroInqnhepjuoZyiklde50/12/2019Hunger ScreeningAnswerDate RecordedWithin the past 12 months we worried whether our food would run out before we got money to buy more.Never True12/29/2024Within the past 12 months the food we bought just didn't last and we didn't have money to get more.Never True12/29/2024Purpose - LifeAnswerDate RecordedPurpose and direction in etcjQmjaokp77/27/2021CommentsNoSex and Gender Information ValueDate RecordedSex Assigned at XsatuUkinfw46/30/2021 5:49 PM ESTLegal Sex Gkgpsm2210/14/2014 11:46 AM EDTGender UwtmqjapRhgcdd87/30/2021 5:49 PM ESTSexual OrientationChoose not to sztolmac54/30/2021 5:49 PM ESTdocumented as of this encounter Plan of Treatment DateTypeDepartmentCare Team (Latest Contact Info)Fayywpcngfz80/21/2026 10:00 AM EDTOffice Visit [facility] [address] [place] [phone] Moe Momin MD [address] [place] [address] 12/30/2025 9:30 AM EDTOffice Visit [facility] [address] [place] [phone] Moe Momin MD [address] [place] [address] [phone] documented as of this encounter Visit Diagnoses Not on filedocumented in this encounter Additional Health Concerns AssessmentNoted TimePHQ-9 Depression Total Score: 10:00 AM EDTA Body Mass Index follow-up plan has been documented for the bnfytbx9312/29/2024 11:24 AM EDTdocumented as of this encounter Care Teams Team MemberRelationshipSpecialtyStart DateEnd Date Moe Momin MD [address] [place] [phone] PCP - GeneralInternal Medicine06/16/24documented as of this encounter
--- OUTSIDE RECORDS SUMMARY | 2025-02-24 22:49 | XMS_ITS | Clinical Summary ---
Author Organization [facility] Healthcare Address [address] [place] [address] Care Team Providers Care Information Technology Advisor Name Role Phone Moe Momin MD Primary Care Provider Allergies Active AllergyReactionsCriticalityNoted DateCommentsAmoxicillin-Pot Clavulanate 05/06/2017DoxycyclineGI vsbyflwtvbq03/04/2024Sulfamethoxazole-TrimethoprimRash, AosaxtuWwt99/26/2018 Medications MedicationSigDispense QuantityRefillsLast FilledStart DateEnd DateStatus albuterol HFA 90 mcg/act inhaler Inhale 2 puffs every 6 (six) hours if needed for wheezingActive budesonide (Pulmicort Flexhaler) 180 MCG/ACT inhaler 1 puff 1 (one) time each day at the same timeActive cefdinir (Omnicef) 300 MG capsule TAKE 1 CAPSULE (300 MG TOTAL) BY MOUTH IN THE MORNING AND BEFORE BEDTIME FOR 10 DAYS01/03/2023ctive ciprofloxacin (Cipro) 500 MG tablet Take 500 mg by mouth every 12 (twelve) hours12/07/2022ctive doxycycline (Vibramycin) 100 MG capsule TAKE 1 CAPSULE (100 MG TOTAL) BY MOUTH IN THE MORNING AND BEFORE BEDTIME FOR 10 DAYS01/21/2023ctive fluticasone (Flonase) 50 MCG/ACT nasal spray Active Arnuity Ellipta 200 MCG/ACT inhaler Inhale 1 puff in the morning.12/24/2022ctive famotidine (Pepcid AC) 10 MG tablet every 12 (twelve) hoursActive fluticasone (Flonase) 50 MCG/ACT nasal spray Administer 2 sprays into affected nostril(s) in the morning.04/22/2023ctive fluticasone (Flovent HFA) 44 MCG/ACT inhaler every 12 (twelve) hoursActive hydroCHLOROthiazide (HYDRODiuril) 25 MG tablet Take 25 mg by mouth in the morning.06/27/2023ctive montelukast (Singulair) 10 MG tablet Take 10 mg by mouth at rgwlsyo4612/24/2022ctive pantoprazole (ProtoNix) 40 MG EC tablet Take 1 tablet by mouth in the morning.01/28/2023ctive potassium chloride CR (Klor-Con M10) 10 MEQ ER tablet Take 10 mEq by mouth in the morning.03/22/2023ctive phenazopyridine (Pyridium) 200 MG tablet TAKE 1 TABLET BY MOUTH THREE TIMES A DAY AFTER MEALS FOR 2 DAYS12/07/2022ctive losartan (Cozaar) 100 MG tablet Take 100 mg by mouth in the morning.06/27/2023ctive loratadine (Claritin) 10 MG tablet Take 10 mg by mouth in the morning.Active levothyroxine (Synthroid, Levoxyl) 75 MCG tablet Take 1 tablet by mouth in the morning.03/14/2023ctive Turmeric (QC TUMERIC COMPLEX PO) Take by mouthActive ondansetron ODT (Zofran-ODT) 4 MG disintegrating tablet TAKE 1 TABLET BY MOUTH EVERY 6 HOURS NEEDED FOR NAUSEA AND MUABMRHP16/24/2024 Active meclizine (Antivert) 25 MG tablet Take 25 mg by mouth as needed in the morning and 25 mg as needed at noon and 25 mg as needed in theevening.08/02/2023ctiveHospital, Clinic, or Other Facility Administered MedicationOrdered DoseRouteFrequencyStart DateEnd DateStatus methylPREDNISolone acetate (DEPO-Medrol) injection 40 mg Indications:Arthritis of right knee40 mgIXOnce PRN Yvcvjyowa39 Ended Active Problems No known active problems Encounters DateTypeDepartmentCare KyrsCcovpemdpdi85/10/2025 11:05 AM ESTAncillary Procedure [facility] [place] [address] 02/17/2025 11:00 AM ESTOffice Visit [facility] [address] [place] [phone] Gorge Scruggs PA Right knee pain, unspecified chronicity (Primary Dx); Arthritis of right knee; Acute pain of right knee02/17/2025amb flowsheet [facility] [place] [address] [place] [phone] Gorge Scruggs PA 02/17/20258056Xhyodh11/30/2025 10:10 AM EDTAncillary Procedure [address] [place] [address] 12/08/2024 10:00 AM EDTOffice Visit [facility] [place] [address] [place] [address] Gorge Scruggs PA Acute pain of left knee (Primary Dx); Arthritis of left knee12/08/2024[facility] flowsheet [facility] [address] [place] [phone] Gorge Scruggs PA 12/08/2024Travelfrom Last 3 Months Family History RelationNameStatusCommentsFatherDeceasedMotherDeceased Social History Tobacco UseTypesPacks/DayYears UsedDateSmoking Tobacco: NeverSmokeless Tobacco: Never Tobacco Cessation:Counseling Given: Not Answered Alcohol UseStandard Drinks/WeekCommentsYes1 (1 standard drink = 0.6 oz pure alcohol)1 glass once a month or every other monthCommentsUnknownSex and Gender InformationValueDate RecordedSex Assigned at BirthNot on fileLegal Sex Tyqbdq4605/23/2022 7:21 PM EDTGender IdentityNot on fileSexual OrientationNot on file Last Filed Vital Signs Vital SignReadingTime TakenCommentsBlood Pressure--Pulse--Temperature-- Respiratory Rate--Oxygen Saturation--Inhaled Oxygen Concentration--Sqrcfi60.9 kg (218 lb)08/21/2021 12:00 PM PCRYkjgxc210.5 cm (5' 2 )08/21/2021 12:00 PM EDTBody Mass Index39.8706/ 12:00 PM EDT Plan of Treatment Health MaintenanceDue DateLast DoneCommentsCT Camlecrjdzif33/05/1951FIT-DNA 1950FIT1950FOBT1950 9443Dnlsmmmemubyq59/05/1951OVID-19 Vaccine ( season), 02/01/2023, 01/01/2022, Additional history vnugrnZqevfkrpk45, 01/20/2024, 01/17/2023, Additional history cbpyvzCdvfqgswebv79, 10/28/2023, 11/15/2020olorectal Cancer Ompfdqkjw92/19/2034neumococcal Vaccine: 65+ KpedpUojawjjgv53/20/2017, 12/09/2016Influenza ZqoppaxIqdrjmckq16/28/2025, 12/24/2023, 12/13/2023, Additional history exists Procedures Procedure NamePriorityDate/TimeAssociated DiagnosisCommentsPR ARTHROCENTESIS ASPIR&/INJ MAJOR JT/BURSA W/O AQEliiehr42/10/2025 11:27 AM EST Arthritis of right knee XR KNEE 1-2 VIEWS IIXWVXtlkpvp28/10/2025 11:04 AM EST Acute pain of right knee CA ARTHROCENTESIS ASPIR&/INJ MAJOR JT/BURSA W/O WIZeyahzl19/30/2025 10:32 AM EDT Arthritis of left knee XR KNEE 1-2 VIEWS PMMUPynwpjv88/30/2025 10:09 AM EDT Acute pain of left knee from Last 3 Months Results * CA ARTHROCENTESIS ASPIR&/INJ MAJOR JT/BURSA W/O US (02/17/2025 [...] the usual sterile fashion. Authorizing ProviderResult TypeResult StatusGorge Scruggs PAIN CLINIC/BEDSIDE ORDERABLESFinal Result * XR [...] and patellafemoral joint spaces. Authorizing ProviderResult TypeResult Gloria Scruggs PAIMG XR PROCEDURES Final Result * CA ARTHROCENTESIS ASPIR&/INJ MAJOR JT/BURSA W/O US (12/08/2024 10:32 AM EDT) Gorge Adams PA - 12/08/2024 10:32 AM EDT AL Boland 12/08/2024 10:36 AM L Inj/Asp: L knee on 12/08/2024 10:32 AM Indications: pain Details: 22 G needle, anterolateral approach Medications: 40 mg methylPREDNISolone acetate 40 MG/ML Outcome: tolerated well, no immediate complications UTILIZING ASEPTIC TECHNIQUE PT GIVEN INJECTION IN LEFT KNEE, NEUROVASC INTACT S/P INJ, TOLERATED WELL Procedure, treatment alternatives, risks and benefits explained, specific risks discussed. Consent was given by the patient. Authorizing ProviderResbatool BeaverResult Gloria Scruggs PAIN CLINIC/BEDSIDE ORDERABLESFinal Result * XR knee 1 or 2 views left (12/08/2024 10:09 AM EDT)Anatomical RegionLaterality ModalityLower Extremities, KneeLeftRadiographic ImagingSpecimen (Source) Anatomical Location / LateralityCollection Method / VolumeCollection Time Received Time Narrative 12/08/2024 10:34 AM EDT Imaging Result: AP and lateral left knee: No acute fracture or dislocation Narrowing medial and lateral joint line with subchondral sclerosis and slight subchondral cystic changes predominant to lateral weight bearing surface with flattening. 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
--- NOTE | 2025-02-24 23:18 | ED.WOUNDLAC1 ---
HPI - Wound/Laceration General Chief Complaint: Wound/Laceration Stated Complaint: Cut on R leg Time Seen by Provider: 02/24/25 22:25 Source: patient Mode of arrival: Wheelchair History of Present Illness HPI narrative: This 74-year-old female presents for evaluation of a laceration to her right lower leg. The patient states she was in her garage and her boot got caught and she fell forward onto a cement stair. She then noticed blood on her pants and pulled her pant leg up revealing an approximately 7 cm horizontal laceration to her mid to distal lower leg. She does not know the date of her last tetanus shot. She is not on blood thinners. No additional injuries or complaints. Related Data Home Medications ?Medication ?Instructions ?Recorded ?Confirmed albuterol sulfate 90 mcg/actuation 1 puff inhalation DAILY 08/02/23 08/02/23 aerosol inhaler hydrochlorothiazide 25 mg tablet 25 mg PO DAILY 08/02/23 08/02/23 levothyroxine 75 mcg tablet 75 mcg PO DAILY 08/02/23 08/02/23 losartan 100 mg tablet 100 mg PO DAILY 08/02/23 08/02/23 montelukast 10 mg tablet 10 mg PO DAILY 08/02/23 08/02/23 pantoprazole 40 mg tablet,delayed 40 mg PO DAILY 08/02/23 08/02/23 release potassium chloride 10 mEq 10 meq PO DAILY 08/02/23 08/02/23 tablet,extended release(part/cryst) (Klтатьяна-Con M) Previous Rx's ?Medication ?Instructions ?Recorded meclizine 25 mg tablet 25 mg PO QID PRN dizziness #20 tabs 08/02/23 ondansetron 4 mg disintegrating 4 mg PO Q6H PRN nausea and 08/02/23 tablet vomiting #20 tabs Allergies Allergy/AdvReac Type Severity Reaction Status Date / Time sulfamethoxazole (From Allergy Intermediate Hives Verified 08/02/23 08:53 Bactrim) trimethoprim (From Bactrim) Allergy Intermediate Hives Verified 08/02/23 08:53 Review of Systems ROS Status of ROS 10 or more systems reviewed and unremarkable except as noted in history and below PFSH PFSH Social History Little interest or pleasure in doing things: not at all Feeling down, depressed, or hopeless: not at all Exam Narrative Exam Narrative: Vital signs and Nursing Notes reviewed: Patient is afebrile, pulse is elevated 93, blood pressure is elevated 140/87, she is not hypoxic with pulse ox of 95% on room air General: Awake, alert, oriented, no acute distress, lying comfortably on the stretcher HEENT: Normocephalic atraumatic, mucous membranes are moist and pink, eyes are clear, normal conjunctiva, vision is grossly intact Chest: Lungs are clear to auscultation with good air entry, there is no wheezing rhonchi or rales appreciated no accessory muscle use, patient is speaking in complete sentences-no chest wall tenderness to palpation CVS: Regular rate and rhythm S1-S2, no murmurs rubs or gallops, pulses are brisk and equal bilaterally Extremities: Moving all extremities, approximately 7 cm horizontal laceration to the right lower leg, anterior tibial area. Mild active bleeding. Minimal tissue damage noted Skin: Normal in appearance without rash,pallor, petechiae or purpura-with the exception of a laceration to the right lower leg as described above Neuro: No focal deficits Constitutional Vital Signs, click to edit/add: Last Vital Signs Temp 98 F 02/24/25 22:21 Pulse 93 H 02/24/25 22:21 Resp 20 02/24/25 22:21 BP 140/87 02/24/25 22:21 Pulse Ox 95 02/24/25 22:21 O2 Del Method Room Air 02/24/25 22:21 Course Vital Signs Vital signs: Vital Signs Temperature 98 F 02/24/25 22:21 Pulse Rate 93 H 02/24/25 22:21 Respiratory Rate 20 02/24/25 22:21 Blood Pressure 140/87 02/24/25 22:21 Pulse Oximetry 95 02/24/25 22:21 Oxygen Delivery Method Room Air 02/24/25 22:21 Temperature 98 F 02/24/25 22:21 Pulse Rate 93 H 02/24/25 22:21 Respiratory Rate 20 02/24/25 22:21 Blood Pressure 140/87 02/24/25 22:21 Pulse Oximetry 95 02/24/25 22:21 Oxygen Delivery Method Room Air 02/24/25 22:21 MDM - Wound/Laceration MDM Narrative Medical decision making narrative: 74-year-old female presents for evaluation of an approximately 7 cm horizontal laceration to her right lower leg that occurred when she fell and struck it on a concrete stair. Her tetanus was updated. The wound was closed with 12 Ethilon sutures after copious normal saline irrigation. She tolerated the procedure well. A bacitracin dressing and sterile dry dressing was placed over the wound. Wound care instructions were given to the patient who verbalizes standing. Discharge Plan Discharge Chief Complaint: Wound/Laceration Clinical Impression: Laceration of leg not thigh Patient Disposition: Home, Self-Care Time of Disposition Decision: 23:17 Condition: Good Prescriptions / Home Meds: No Action albuterol sulfate 90 mcg/actuation HFA aerosol inhaler 1 puff INHALATION DAILY hydrochlorothiazide 25 mg tablet 25 mg PO DAILY levothyroxine 75 mcg tablet 75 mcg PO DAILY losartan 100 mg tablet 100 mg PO DAILY montelukast 10 mg tablet 10 mg PO DAILY pantoprazole 40 mg tablet,delayed release (DR/EC) 40 mg PO DAILY potassium chloride [Klor-Con M10] 10 mEq tablet,ER particles/crystals 10 meq PO DAILY meclizine 25 mg tablet 25 mg PO QID PRN (Reason: dizziness) Qty: 20 0RF ondansetron 4 mg tablet,disintegrating 4 mg PO Q6H PRN (Reason: nausea and vomiting) Qty: 20 0RF Print Language: Divehi Instructions: Care For Your Stitches (ED), Laceration (ED) Additional Instructions: Sutures can be removed in 12 to 14 days. Please keep bacitracin and a sterile dry dressing over the laceration site. Return to the emergency department for signs of infection, fever, redness swelling or any concerns. Referrals: ZAHRA NEWMAN MD [Primary Care Provider] - 1 week Procedures ED Procedure Instructions Procedures Procedures: Procedure note: Laceration repair; the laceration was cleaned with copious normal saline. Wound edges were irrigated with 1% lidocaine. When anesthesia was obtained 12, 3-0 Ethilon sutures were placed into the laceration with good wound edge approximation. A sterile bacitracin dressing was applied by the nursing staff. Patient tolerated procedure well.
[2025-02-24] MEDS: BACITRACIN OINTMENT 28.4 GM TUBE 1 APPLIC TOPICAL (23:37)
[2025-02-24] MEDS: DIPHTH,PERTUSS(ACELL),TET VAC 0.5 ML SYRINGE IM (23:38)
== END 2025-02-24 23:43 | disposition home or self-care (01) ==
PROVIDERS: Emergency Provider Emergency Medicine; PCP Student in an Organized Health Care Education/Training Program
DX: S81.811A Laceration without foreign body, right lower leg, initial encounter (principal); W01.198A Fall on same level from slipping, tripping and stumbling with subsequent striking against other object, initial encounter
CPT/HCPCS: 12002; 90471; 90715; 99284